=== PATIENT | male | born 1985 | race Caucasian/White ===

== ENCOUNTER 2022-11-07 10:14 | Emergency (ER) | payer MEDICAID ==
[~2022-11-07] VITALS: Ht 172.7 cm; Wt 70.0 kg
[2022-11-07] MEDS ORDERED: CEFDINIR300 MG PO (11:02)
[2022-11-07] MEDS ORDERED: BACTRIM DS1 TAB PO (11:02)
[2022-11-07 11:03] VITALS: BP 115/80
[2022-11-07 11:25] VITALS: BP 115/80
== END 2022-11-07 11:26 | disposition left against medical advice (07) ==
LOC: ED 10:14
DX: L02.214 Cutaneous abscess of groin (principal); R00.0 Tachycardia, unspecified; I10 Essential (primary) hypertension